=== PATIENT | female | born 1980 | race American Indian/Alaskan Native ===

== ENCOUNTER 2016-11-17 05:00 | Emergency (ER) | payer BC, OTHER ==
[2016-11-17] MEDS ORDERED: Ondansetron 4 MG/2 ML SDV IVPUSH ONE (05:48)
[2016-11-17] MEDS ORDERED: Sodium Chloride 0.9% 1,000 ML IV SCH (06:00)
--- NOTE | 2016-11-17 06:30 | EDM.PDOC ---
<Heide Cronin - Last Filed: 11/17/16 06:54> ED HPI GENERAL MEDICAL PROBLEM - General Chief Complaint: Abdominal Pain Stated Complaint: ABD PAIN/VOMITING Time Seen by Provider: 11/17/16 05:15 Source of Information: Reports: Patient History Limitations: Reports: No Limitations - History of Present Illness INITIAL COMMENTS - FREE TEXT/NARRATIVE: p t arrived with pain in her rt lower abdoman and around the umbilus. She was dry heaving earlier. Onset: Other (pt has had pain for the past 2 days. ) Duration: Day(s): Location: Reports: Abdomen Associated Symptoms: Reports: Diaphoresis, Nausea/Vomiting, Weakness Middle Abdomen Pain Score (Numeric/FACES): 5 - Related Data Allergies Allergy/AdvReac Type Severity Reaction Status Date / Time ketorolac tromethamine Allergy Nausea Verified 11/17/16 05:18 [From Toradol] tramadol Allergy Blisters Verified 11/17/16 05:18 Home Meds: Home Meds Amphetamine/Dextroamphetamine [Adderall XR] 1 tab PO DAILY 10/29/15 [History] Citalopram [Citalopram HBr] 20 mg PO DAILY 10/29/15 [History] Omeprazole [Omeprazole] 20 mg PO DAILY 10/29/15 [History] Past Medical History - Past Health History Medical/Surgical History: Denies Medical/Surgical History [employer] History: Reports: Psychiatric History: Reports: ADD, Anxiety, Depression - Past Surgical History Female Surgical History: Reports: Section Social & Family History - Tobacco Use Smoking Status *Q: Never Smoker - Caffeine Use Caffeine Use: Reports: None - Recreational Drug Use Recreational Drug Use: No ED ROS GENERAL - Review of Systems Review Of Systems: See Below Constitutional: Reports: Diaphoresis HEENT: Reports: No Symptoms Respiratory: Reports: No Symptoms Cardiovascular: Reports: No Symptoms Endocrine: Reports: No Symptoms GI/Abdominal: Reports: Abdominal Pain, Nausea, Vomiting : Reports: No Symptoms Musculoskeletal: Reports: No Symptoms Skin: Reports: No Symptoms ED EXAM, GI/ABD - Physical Exam Exam: See Below Text/Narrative:: pt has been sick since Friday with abdomanal pain and nausea and vomiting. She has pain in the periumbilical area and in the rt lower abdoman. She does not have a elevated wbc. Exam Limited By: No Limitations General Appearance: Alert, Moderate Distress Eyes: Bilateral: Normal Appearance, EOMI Ears: Normal TMs Nose: Normal Inspection Throat/Mouth: Normal Inspection Head: Atraumatic Neck: Normal Inspection Respiratory/Chest: No Respiratory Distress Cardiovascular: Regular Rate, Rhythm GI/Abdominal Exam: Tender, Other ( Pt has tenderness in the periumbilical area and rt lower abdoman. ) (Female) Exam: Deferred Rectal (Female) Exam: Deferred Back Exam: Normal Inspection Extremities: Normal Inspection Neurological: Alert, Oriented, Normal Cognition Course - Vital Signs Last Recorded V/S: Last Vital Signs Temp 36.3 C 11/17/16 05:11 Pulse 74 11/17/16 05:11 Resp 16 11/17/16 05:11 BP 151/92 H 11/17/16 05:11 Pulse Ox 98 11/17/16 05:11 - Orders/Labs/Meds Orders: Active Orders 24 hr Category Date Time Status Abdomen Ltd [US] Stat Exams 11/17/16 06:30 Ordered Abdomen Series w Chest 1V [CR] Stat Exams 11/17/16 05:49 Taken Pelvis Non OB Ltd [US] Stat Exams 11/17/16 06:30 Ordered Lactated Ringers [Ringers, Lactated] 1,000 ml Med 11/17/16 07:45 Active IV ASDIRECTED Sodium Chloride 0.9% [Normal Saline] 1,000 ml Med 11/17/16 06:00 Active IV ASDIRECTED Medication Orders Sodium Chloride (Normal Saline) 1,000 mls @ 999 mls/hr IV ASDIRECTED HAM Last Admin: 11/17/16 06:26 Dose: 999 mls/hr Lactated Ringer's (Ringers, Lactated) 1,000 mls @ 500 mls/hr IV ASDIRECTED HAM Labs: Laboratory Tests 11/17/16 11/17/16 11/17/16 Range/Units 05:48 06:02 06:02 WBC 7.8 (4.5-11.0) K/uL RBC 4.54 (3.30-5.50) M/uL Hgb 14.4 (12.0-15.0) g/dL Hct 41.8 (36.0-48.0) % MCV 92 (80-98) fL MCH 32 H (27-31) pg MCHC 34 (32-36) % Plt Count 353 (150-400) K/uL Neut % (Auto) 59 (36-66) % Lymph % (Auto) 32 (24-44) % Bryan % (Auto) 7 H (2-6) % Eos % (Auto) 2 (2-4) % Baso % (Auto) 1 (0-1) % Sodium 141 (140-148) mmol/L Potassium 4.0 (3.6-5.2) mmol/L Chloride 103 (100-108) mmol/L Carbon Dioxide 29 (21-32) mmol/L Anion Gap 9.5 (5.0-14.0) mmol/L BUN 10 (7-18) mg/dL Creatinine 0.7 (0.6-1.0) mg/dL Est Cr Clr Drug Dosing 109.92 mL/min Estimated GFR (MDRD) > 60 (>60) Glucose 111 H (74-106) mg/dL Calcium 10.5 H D (8.5-10.1) mg/dL Total Bilirubin 0.3 (0.2-1.0) mg/dL AST 44 H (15-37) U/L ALT 74 (12-78) U/L Alkaline Phosphatase 107 (46-116) U/L C-Reactive Protein 0.15 (0.0-0.3) mg/dL Total Protein 7.7 (6.4-8.2) g/dL Albumin 3.9 (3.4-5.0) g/dL Globulin 3.8 H (2.3-3.5) g/dL Albumin/Globulin Ratio 1.0 L (1.2-2.2) Urine Color Urine Appearance Urine pH (4.5-8.0) Ur Specific [place] (1.008-1.030) Urine Protein (NEGATIVE) mg/dL Urine Glucose (UA) (NEGATIVE) mg/dL Urine Ketones (NEGATIVE) mg/dL Urine Occult Blood (NEGATIVE) Urine Nitrite (NEGATIVE) Urine Bilirubin (NEGATIVE) Urine Urobilinogen (NORMAL) mg/dL Ur Leukocyte Esterase (NEGATIVE) Urine RBC (0-5) Urine WBC (0-5) Ur Epithelial Cells Amorphous Sediment Urine Bacteria Urine Mucus 11/17/16 Range/Units 07:12 WBC (4.5-11.0) K/uL RBC (3.30-5.50) M/uL Hgb (12.0-15.0) g/dL Hct (36.0-48.0) % MCV (80-98) fL MCH (27-31) pg MCHC (32-36) % Plt Count (150-400) K/uL Neut % (Auto) (36-66) % Lymph % (Auto) (24-44) % Bryan % (Auto) (2-6) % Eos % (Auto) (2-4) % Baso % (Auto) (0-1) % Sodium (140-148) mmol/L Potassium (3.6-5.2) mmol/L Chloride (100-108) mmol/L Carbon Dioxide (21-32) mmol/L Anion Gap (5.0-14.0) mmol/L BUN (7-18) mg/dL Creatinine (0.6-1.0) mg/dL Est Cr Clr Drug Dosing mL/min Estimated GFR (MDRD) (>60) Glucose (74-106) mg/dL Calcium (8.5-10.1) mg/dL Total Bilirubin (0.2-1.0) mg/dL AST (15-37) U/L ALT (12-78) U/L Alkaline Phosphatase (46-116) U/L C-Reactive Protein (0.0-0.3) mg/dL Total Protein (6.4-8.2) g/dL Albumin (3.4-5.0) g/dL Globulin (2.3-3.5) g/dL Albumin/Globulin Ratio (1.2-2.2) Urine Color Yellow Urine Appearance Clear Urine pH 8.0 (4.5-8.0) Ur Specific [place] 1.020 (1.008-1.030) Urine Protein Negative (NEGATIVE) mg/dL Urine Glucose (UA) Normal (NEGATIVE) mg/dL Urine Ketones Negative (NEGATIVE) mg/dL Urine Occult Blood Negative (NEGATIVE) Urine Nitrite Negative (NEGATIVE) Urine Bilirubin Negative (NEGATIVE) Urine Urobilinogen Normal (NORMAL) mg/dL Ur Leukocyte Esterase Negative (NEGATIVE) Urine RBC Not seen (0-5) Urine WBC Not seen (0-5) Ur Epithelial Cells Rare Amorphous Sediment Rare Urine Bacteria Rare Urine Mucus Not seen Meds: Medications Generic Name Dose Route Start Last Admin Trade Name Freq PRN Reason Stop Dose Admin Sodium Chloride 1,000 mls @ 999 mls/hr 11/17/16 06:00 11/17/16 06:26 Normal Saline IV 999 mls/hr ASDIRECTED HAM Administration Lactated Ringer's 1,000 mls @ 500 mls/hr 11/17/16 07:45 Ringers, Lactated IV ASDIRECTED HAM Discontinued Medications Generic Name Dose Route Start Last Admin Trade Name Jaspreet PRN Reason Stop Dose Admin Ondansetron HCl 4 mg 11/17/16 05:48 11/17/16 06:28 Zofran IVPUSH 11/17/16 05:49 4 mg ONETIME ONE Administration - Re-Assessments/Exams Free Text/Narrative Re-Assessment/Exam: 11/17/16 06:58 pt has a normal crp and a normal wbc. Will have a us done on the gb area nd also a pelvic us to look at the ovaries. Departure - Departure Disposition: Home, Self-Care 01 Clinical Impression: Abdominal pain Qualifiers: Abdominal location: right lower quadrant Qualified Code(s): R10.31 - Right lower quadrant pain - Discharge Information Forms: ED Department Discharge Additional Instructions: Please don't hesitate to return to the emergency room if her symptoms significantly worsen especially if they are accompanied by fever otherwise if you just not improving you can follow-up with your primary care doctor and have him or her assist you in managing your illness. Hopefully it will just pass and go away and he'll feel better in the next day or 2. - My Orders Last 24 Hours: My Active Orders 11/17/16 07:45 Lactated Ringers [Ringers, Lactated] 1,000 ml IV ASDIRECTED - Assessment/Plan Last 24 Hours: My Active Orders 11/17/16 07:45 Lactated Ringers [Ringers, Lactated] 1,000 ml IV ASDIRECTED <Matthew Ahuja - Last Filed: 11/17/16 08:31> Course - Re-Assessments/Exams Free Text/Narrative Re-Assessment/Exam: 11/17/16 08:[address] results have come back and are negative her pain is 4-10 she is tolerating this well she is comfortable going home and writing this out and will return if symptoms significantly worsen or follow up with her primary if she's not improving. Departure - Departure Time of Disposition: 08:30 Condition: Good
[2016-11-17] MEDS ORDERED: Lactated Ringers 1,000 ML IV SCH (07:45)
[2016-11-17 08:49] VITALS: BP 148/86
--- NOTE | 2016-11-18 08:40 | CR ---
Abdomen Series w Chest 1V INDICATION: pain in rt lower abdoman and around the umbilcus. FINDINGS: Negative chest. Normal bowel gas pattern. No evidence for small bowel obstruction or free air. Moderate stool throughout colon.
== END 2016-11-17 08:49 | disposition home or self-care (01) ==
LOC: JP.ED 05:00
DX: R10.31 Right lower quadrant pain (principal); F41.9 Anxiety disorder, unspecified; F32.9 Major depressive disorder, single episode, unspecified; Z79.899 Other long term (current) drug therapy; Z88.6 Allergy status to analgesic agent; Z88.5 Allergy status to narcotic agent
CPT/HCPCS: 36415; 74022; 76705; 76857; 80053; 81001; 85025; 86140; 96361; 96374; 99284; J2405; J7040

== ENCOUNTER 2022-05-05 04:09 | Emergency (ER) | payer OTHER ==
[2022-05-05] MEDS ORDERED: Ketorolac 30 MG/ML SDV IM ONE (05:03)
[2022-05-05 05:06] VITALS: BP 129/81; PULSE 82
== END 2022-05-05 06:34 | disposition home or self-care (01) ==
LOC: JP.ED 04:09
DX: O03.9 Complete or unspecified spontaneous abortion without complication (principal); Z88.5 Allergy status to narcotic agent; Z79.899 Other long term (current) drug therapy
CPT/HCPCS: 36415; 84702; 85025; 86900; 86901; 96372; 99283; 99284; J1885